=== PATIENT | female | born 1990 | race Caucasian/White ===

== ENCOUNTER 2018-08-07 13:22 | Emergency (ER) | payer OTHER ==
[~2018-08-07] VITALS: Ht 165.1 cm; Wt 127.0 kg
--- NOTE | ~2018-08-07 | EKG ---
[address] [address] ELECTROCARDIOGRAM REPORT Name: HARRINGTONLIANG JEFFA Room #: [facility]ITAL[facility] [id number] Admission: 08/07/18 Attend Phys: Discharge: 08/07/18 Date of : 88 Report #: [id number] THIS REPORT FOR: //name// [facility] ED Test Date: 2018-08-07 Test Time: 13:34:55 Pat Name: KRISTINA HARRINGTON Department: Room: Gender: F Manager Placement: [facility] : 1990 Requested By: Deja Mccormack Order Number: [id number] MD: Waqas Zambrano Measurements Intervals [place] Rate: 89 P: 39 UT: 140 QRS: 37 QRSD: 97 T: 5 QT: 368 QTc: 448 Interpretive Statements Sinus rhythm Baseline wander in lead(s) V1 No previous ECG available for comparison Electronically Signed On 08-08-2018 8:35:28 CDT by Waqas Zambrano [email or web address] <ELECTRONICALLY SIGNED> By: Waqas Zambrano MD 08/08/18 0835 1334 1334 Waqas Zambrano MD /IZA
[2018-08-07] MEDS ORDERED: OTEZLA30 MG PO (13:32)
[2018-08-07] MEDS ORDERED: NEXPLANON68 MG SUBQ (13:33)
[2018-08-07] MEDS ORDERED: ZANTAC 150MG T150 MG PO (14:30)
[2018-08-07] MEDS ORDERED: CARAFATE 1 GM TA1 G1 PO (14:30)
[2018-08-07 14:37] VITALS: BP 125/83
== END 2018-08-07 14:37 | disposition home or self-care (01) ==
LOC: ER 13:22
DX: R12 Heartburn (principal); F17.210 Nicotine dependence, cigarettes, uncomplicated